=== PATIENT | male | born 1985 | race Caucasian/White ===

== ENCOUNTER 2019-04-22 03:55 | Emergency (ER) | payer OTHER, SELFPAY ==
[2019-04-22 04:01] VITALS: BP 148/104; PULSE 122; PULSE 124; RESP 20; TEMP 37.4; O2SAT 97
--- NOTE | 2019-04-22 04:12 | ECG_ITS ---
Measurements Intervals [place] Rate: 120 P: 68 SC: 150 QRS: 116 QRSD: 101 T: 63 QT: 434 QTc: 613 Interpretive Statements SINUS TACHYCARDIA RIGHT AXIS DEVIATION VOLTAGE CRITERIA FOR LVH CANNOT RULE OUT SEPTAL INFARCT, AGE INDETERMINATE MINIMAL ST ELEVATION IN ANTERIOR LEADS- PROBABLY DUE TO PRIOR CO OR LVH HIGH LATERAL INFARCT, AGE INDETERMINATE BASELINE ARTIFACT- I ABNORMAL ECG Electronically Signed On 04-22-2019 7:34:58 CDT by Adair Stewart D.O.
--- NOTE | 2019-04-22 05:37 | ED.URI ---
HPI - URI/Sore Throat General Chief Complaint: Chest Pain Stated Complaint: dizzy, palpitations Time Seen by Provider: 04/22/19 04:07 Source: patient Mode of arrival: ambulatory Limitations: no limitations History of Present Illness HPI Narrative: Patient is a 33-year-old male presents to the emergency department with complaint of congestion, sore throat, earache, chills/sweats, ringing in his ears, and cough. Patient reports onset of symptoms a few days ago. Patient also reports worsening pain in his left ear after blowing his nose really hard. Complains of a dizzy sensation and does note an occasional palpitation or thumping sensation in his chest. He specifically denies any chest pain, contrary to nursing notes, and denies any shortness of breath. Patient does have prior history of coronary artery disease and acute VT. Patient denies any symptoms consistent with what he has had previously with his VT. MD elicited complaint: cough, sore throat, rhinorrhea and nasal congestion Onset (ago): day(s) Consistency: constant Associated symptoms: chills, diaphoresis, headache, rhinorrhea, nasal congestion, sore throat, cough and ear pain Treatments prior to arrival: other (Excedrin) Related Data Allergies Allergy/AdvReac Type Severity Reaction Status Date / Time No Known Allergies Allergy Unverified 06/24/18 13:23 Review of Systems Review of Systems: All systems reviewed & are unremarkable except as noted in HPI and below Constitutional: Constitutional: Reports chills, Reports excessive sweating, Denies fever(s) and Reports headache(s) ENT: Reports dizziness, Reports otalgia, Reports headache(s), Reports nasal congestion, Reports nasal discharge, Reports tinnitus and Reports sore throat Cardiovascular: Cardiovascular: Denies chest pain Respiratory: Respiratory: Reports cough and Denies dyspnea PMFSH Past Medical History Medical History Anxiety Asthma CHF (congestive heart failure) Coronary artery disease Depression Diabetes mellitus GERD (gastroesophageal reflux disease) Hyperlipidemia Hypertension Ischemic cardiomyopathy Sleep apnea Surgical History Surgical History History of cardiac catheterization History of coronary artery stent placement History of esophagogastroduodenoscopy (EGD) History of orthopedic surgery Social History Social History Smoking status: Light tobacco smoker Alcohol intake: never Gender identity (if verbalized by the patient): Male Exam Const: General: cooperative, no acute distress and alert Nutritional Appearance: obese Orientation/consciousness: patient oriented x3 Limitations: no limitations HENMT: Ears: external ears normal, EAC's normal and TM abnormal erythematous on the left (mild); not bulging, with no fluid behind the TM and with no loss of landmarks Mouth: Yes lip normal and Yes moist mucous membranes Throat: uvula midline and posterior oropharynx abnormal cobblestoning, edema and erythema Resp: Effort & Inspection: normal respiratory effort Auscultation: clear to auscultation bilaterally Cardio: Rate: regular rate Rhythm: regular rhythm GI: GI Palp: Yes Soft to palpation and No Tenderness to palpation present (GI) Auscultation: normal bowel sounds Skin: General skin exam: normal color Neuro: General: patient oriented x3 Cognition (Neuro): normal cognition Speech: normal speech Extrem: General: normal to inspection, full ROM and no clubbing, cyanosis or edema Psych: Mental Status: mental status grossly normal Affect: normal affect Attitude: cooperative Course Course Emergency Course: On reevaluation, patient complaining of ongoing nasal congestion. Patient has low-grade temperature elevation. Strep and flu testing negative. Patient denying any chest pain, shortness of breath, or any o
[2019-04-22 05:46] VITALS: BP 160/102; PULSE 106; RESP 20; O2SAT 96
[2019-04-22 06:14] VITALS: BP 132/88; PULSE 108; RESP 18; O2SAT 98
== END 2019-04-22 06:16 | disposition home or self-care (01) ==
PROVIDERS: Emergency Provider Emergency Medicine; PCP Emergency Medicine
DX: J06.9 Acute upper respiratory infection, unspecified (principal); I25.10 Atherosclerotic heart disease of native coronary artery without angina pectoris; I25.2 Old myocardial infarction; J45.909 Unspecified asthma, uncomplicated; I50.9 Heart failure, unspecified; E11.9 Type 2 diabetes mellitus without complications; K21.9 Gastro-esophageal reflux disease without esophagitis; E78.5 Hyperlipidemia, unspecified; I11.0 Hypertensive heart disease with heart failure; G47.30 Sleep apnea, unspecified; Z95.5 Presence of coronary angioplasty implant and graft; R00.0 Tachycardia, unspecified; R94.31 Abnormal electrocardiogram [ECG] [EKG]
CPT/HCPCS: 87081; 87804; 87880; 93005; 99283

== ENCOUNTER 2021-09-28 05:05 | Emergency (ER) | payer OTHER, SELFPAY ==
[2021-09-28] VITALS (8 sets, daily range): BP systolic 112–141; BP diastolic 66–94; PULSE 88–106; RESP 14–23; TEMP 36.9–37.4; O2SAT 94–99
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
--- NOTE | ~2021-09-28 | XR_ITS ---
EXAMINATION: XR chest 1V portable DATE: 09/28/2021 05:59 INDICATION: Syncope. TECHNIQUE: A single frontal view of the chest was obtained. COMPARISON: Chest single view 10/07/2018, chest CT 09/11/2017 FINDINGS: The chest demonstrates clear lungs without pneumonia, pleural effusion, or pneumothorax. Th e heart size is normal. There is an old healed fracture of right clavicle. IMPRESSION: 1. No acute cardiopulmonary disease. Reviewed, dictated and finalized at location A.
--- NOTE | ~2021-09-28 | CT_ITS ---
EXAMINATION: CT cervical spine wo con DATE: 09/28/2021 05:42 INDICATION: Head injury. TECHNIQUE: Computed tomography (CT) of the cervical spine was performed without intravenous contrast. Automated exposure control and iterative reconstruction technique were employed. The dose-length pro duct was 471.17 mGy-cm. COMPARISON: CT cervical spine 11/23/2015 FINDINGS: There is 7 degrees dextrocurvature of cervicothoracic spine. There is mild chronic anterior wedging of T1 vertebral body. There is mildly decreased disc height at C6-C7. The following disc lev els are specifically discussed: C2-C3: There is mild left uncovertebral joint osteoarthritis. There is mild bilateral facet joint ost eoarthritis. There is no neural foraminal stenosis. There is no central canal stenosis. C3-C4: There is mild left uncovertebral joint osteoarthritis. There is mild left facet joint osteoart hritis. There is no neural foraminal stenosis. There is no central canal stenosis. C4-C5: There is mild right uncovertebral joint osteoarthritis. There is no facet joint osteoarthritis . There is no neural foraminal stenosis. There is no central canal stenosis. C5-C6: There is mild right uncovertebral joint osteoarthritis. There is mild bilateral facet joint os teoarthritis. There is no neural foraminal stenosis. There is no central canal stenosis. C6-C7: There is no uncovertebral joint osteoarthritis. There is no facet joint osteoarthritis. There is no neural foraminal stenosis. There is mild central canal stenosis. C7-T1: There is no uncovertebral joint osteoarthritis. There is mild right and moderate left facet candy int osteoarthritis. There is no neural foraminal stenosis. There is no central canal stenosis. IMPRESSION: 1. No fracture. 2. Mild cervical spondylosis. Reviewed, dictated and finalized at location A.
--- NOTE | 2021-09-28 05:09 | ECG_ITS ---
Measurements Intervals [place] Rate: 109 P: 64 MD: 181 QRS: -65 QRSD: 115 T: 83 QT: 335 QTc: 452 Interpretive Statements SINUS TACHYCARDIA POSSIBLE LEFT ATRIAL ENLARGEMENT [-0.1mV P-WAVE IN V1/V2] LEFT AXIS DEVIATION [QRS AXIS < -30] ANTEROSEPTAL MYOCARDIAL INFARCTION , POSSIBLY ACUTE [40+ ms Q WAVE IN V1-V4] ACUTE [place] ABNORMAL ECG Electronically Signed On 10-02-2021 9:54:01 CDT by Sudeep Murray M.D.
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
[2021-09-28] MEDS: SODIUM CHLORIDE 0.9% IV 1,000 ML 999 ML IV CONT (05:49)
[2021-09-28 05:52] LABS: Basophils Absolute Auto 0.1 K/mm3 (0.0-0.1); Basophils Percent Auto 0.4 % (0.2-1.2); Eosinophils Percent Auto 0.2 % (0-4.4); Hematocrit 43.9 % (42.0-52.0); Hemoglobin 15.2 g/dL (14.0-18.0); Immature Granulocyte Absolute 0.04 K/mm3 (0.00-0.031); Immature Granulocyte Percent A 0.3 % (0-0.5); Lymphocytes Absolute Auto 2.59 K/mm3 (0.9-3.2); Lymphocytes Percent Auto 18.3 % (18.3-44.2); Mean Corpuscular HGB Conc 34.6 g/dl (32-36); Mean Corpuscular Hemoglobin 30.9 pg (26-34); Mean Corpuscular Volume 89.2 fl (80-100); Mean Platelet Volume 9.9 fl (7.4-10.4); Monocytes Absolute Auto 0.8 K/mm3 (0.1-0.6); Monocytes Percent Auto 5.3 % (2.6-8.5); Neutrophils Absolute Auto 10.7 K/mm3 (1.3-6.7); Neutrophils Percent Auto 75.5 % (45.5-73.1); Platelet Count Result 309 k/mm3 (150-375); Red Blood Count 4.92 M/mm3 (4.6-6.20); Red Cell Distribution Width 13.6 % (11.5-14.5); White Blood Count 14.1 K/mm3 (4.5-10.0)
[2021-09-28 06:03] LABS: Anion Gap 11 mmol/L (8-16); Blood Urea Nitrogen 16 mg/dL (9-20); Calcium 8.7 mg/dL (8.4-10.2); Carbon Dioxide 24 mmol/L (22-30); Chloride 105 mmol/L (98-107); Estimated CRCL calculation 109 ml/min; Estimated Glomerular Filt Rate > 60; Glucose 111 mg/dL (65-110); INR 1.1; Potassium 3.6 mmol/L (3.4-5.0); Prothrombin Time 13.4 Seconds (11.1-14.7); Sodium 140 mmol/L (137-145)
[2021-09-28 06:04] LABS: Partial Thromboplastin Time 26.7 SECONDS (22.3-36.8)
[2021-09-28 06:14] LABS: Troponin I 0.012 ng/mL (0.000-0.034)
[2021-09-28 06:18] LABS: NT Pro B Type Natriuretic Pept 381 pg/mL (5-100)
[2021-09-28 06:35] LABS: Ethanol 45 mg/dL (<10)
--- NOTE | 2021-09-28 07:16 | PC.NURSE ---
Patient refusing Motrin and Tylenol, states only Aspirin helps his headaches. EDP Meri notified, per EDP via verbal order read-back order 81mg Aspirin.
[2021-09-28] MEDS: ASPIRIN 81 MG CHEWABLE TABLET PO (07:21)
--- NOTE | 2021-09-28 08:13 | PC.NURSE ---
Patient given ice pack for headache
[2021-09-28 09:33] LABS: Troponin I 0.017 ng/mL (0.000-0.034)
--- NOTE | 2021-09-28 10:02 | PC.NURSE ---
Patient calling for ride home
== END 2021-09-28 10:13 | disposition home or self-care (01) ==
PROVIDERS: Emergency Provider Emergency Medicine; PCP Emergency Medicine
DX: R55 Syncope and collapse (principal); R78.0 Finding of alcohol in blood; I50.9 Heart failure, unspecified; I25.10 Atherosclerotic heart disease of native coronary artery without angina pectoris; I11.0 Hypertensive heart disease with heart failure; I25.5 Ischemic cardiomyopathy; E78.5 Hyperlipidemia, unspecified; J45.909 Unspecified asthma, uncomplicated; K21.9 Gastro-esophageal reflux disease without esophagitis; G47.30 Sleep apnea, unspecified; Z95.5 Presence of coronary angioplasty implant and graft; F17.200 Nicotine dependence, unspecified, uncomplicated; R00.0 Tachycardia, unspecified; R94.31 Abnormal electrocardiogram [ECG] [EKG]; M47.812 Spondylosis without myelopathy or radiculopathy, cervical region; W18.39XA Other fall on same level, initial encounter
CPT/HCPCS: 36415; 70450; 71045; 72125; 80048; 80307; 83880; 84484; 85025; 85610; 85730; 93005; 96360; 99284; A9270; J7030

== ENCOUNTER 2021-09-28 23:03 | Emergency (ER) | payer OTHER, SELFPAY ==
--- NOTE | ~2021-09-28 | US_ITS ---
EXAMINATION: US scrotum doppler DATE: 09/29/2021 04:18 INDICATION: Right testicular pain. TECHNIQUE: Grayscale and Doppler ultrasound images of the testes were obtained. COMPARISON: None. FINDINGS: The right testis measures 5.7 x 3.2 x 2.6 cm. The left testis measures 5.6 x 3.3 x 2.8 cm. There is normal vascular flow to both testes. The right epididymis is normal. The left epididymis is normal. There is no varicocele or hydrocele. IMPRESSION: 1. Normal testes. Reviewed, dictated and finalized at location A. IMPRESSION: 1. Normal testes.
--- NOTE | ~2021-09-28 | CT_ITS ---
EXAMINATION: CT abdomen pelvis w con DATE: 09/29/2021 04:32 INDICATION: Right flank pain. TECHNIQUE: Computed tomography (CT) of the abdomen and pelvis was performed with 100 mL Omnipaque 350 intravenous contrast. Automated exposure control and iterative reconstruction technique were employe d. The dose-length product was 818.05 mGy-cm. COMPARISON: None. FINDINGS: The visualized portions of the lung bases are clear without pneumonia or pleural effusion. There is left atrial and left ventricular enlargement of the heart. No pericardial effusion. There ar e cysts in the liver measuring up to 8 mm. There are gallstones in the gallbladder, which is normal i n size. The spleen, pancreas, and adrenal glands are normal. There is mild right hydroureter. There i s a 2 mm stone at right ureterovesicular junction. There is a 2.0 cm cyst in left kidney. There are n o dilated loops of bowel. The appendix is normal. There are no pathologically enlarged lymph nodes. T here is no free intraperitoneal fluid. There is moderate lower lumbar spondylosis. IMPRESSION: 1. 2 mm stone at right ureterovesicular junction with mild right hydroureter. 2. Left atrial and left ventricular enlargement of the heart. Reviewed, dictated and finalized at location A.
[2021-09-28 23:08] VITALS: BP 125/77; PULSE 86; RESP 18; TEMP 36.4; O2SAT 97
--- NOTE | 2021-09-28 23:43 | PC.NURSE ---
patient is yelling at this RN and states I 'need to be taken back to a room immediately this is ridiculous. i am about to call an ambulance to come get me and take me somewhere else
--- NOTE | 2021-09-29 02:47 | ED.ABDPAIN ---
HPI - Abdominal Pain General Chief Complaint: Abdominal Pain <Valerie Cuevas MD - Last Filed: 09/29/21 06:19> Stated Complaint: chest pain and flank pain <Valerie Cuevas MD - Last Filed: 09/29/21 06:19> Time Seen by Provider: 09/29/21 02:47 <Valerie Cuevas MD - Last Filed: 09/29/21 06:19> Source: patient <Valerie Cuevas MD - Last Filed: 09/29/21 06:19> Mode of arrival: ambulatory <Valerie Cuevas MD - Last Filed: 09/29/21 06:19> Limitations: no limitations <Valerie Cuevas MD - Last Filed: 09/29/21 06:19> History of Present Illness HPI narrative: Patient is a 36-year-old male with a history of diabetes, hypertension, hyperlipidemia, cardiomyopathy, congestive heart failure, recently evaluated at this facility this morning, presenting to the emergency department for evaluation of right flank pain and right testicle pain. Patient states he has felt unwell throughout the course of the day with intermittent dizziness, now with right flank pain and right testicle pain. Pain is aching in nature in the right testicle. Patient denies swelling redness. He reports dysuria without hematuria. He reports aching, sharp pain in the right flank. Patient denies fever, chills, he reports nausea without vomiting. He denies vision changes. He denies recurrent fall or injury. He denies alcohol use today. Patient denies penile pain or discharge. He denies vesicular lesions or bruising. Patient denies history of kidney stones. <Valerie Cuevas MD - Last Filed: 09/29/21 06:19> Related Data Allergies/Adverse Reactions: Allergies Allergy/AdvReac Type Severity Reaction Status Date / Time No Known Allergies Allergy Verified 09/28/21 05:15 <Valerie Cuevas MD - Last Filed: 09/29/21 06:19> Review of Systems Review of Systems: CONSTITUTIONAL: Denies fever, chills, or sweats. EYES: Denies visual changes, redness, or discharge. ENT: Denies rhinorrhea, congestion, sore throat, or otalgia. CARDIOVASCULAR: Denies chest pain, palpitations, or edema. RESPIRATORY: Denies cough or dyspnea. GASTROINTESTINAL: Patient reports right lower quadrant abdominal pain, right flank pain, he denies nausea or vomiting GENITOURINARY: Patient reports dysuria, he denies hematuria. He reports right testicular pain. SKIN: Denies rash or itching. MUSCULOSKELETAL: Denies back pain, joint pain, or myalgia. NEUROLOGIC: Patient reports headache, dizziness that worsens with movement, denies focal weakness or numbness <Valerie Cuevas MD - Last Filed: 09/29/21 06:19> [facility] Past Medical History Medical History: Medical History (Updated 09/29/21 @ 14:42 by Mani Ferrell MD) Anxiety Asthma CHF (congestive heart failure) Coronary artery disease Depression Diabetes mellitus GERD (gastroesophageal reflux disease) Hyperlipidemia Hypertension Ischemic cardiomyopathy Sleep apnea <Valerie Cuevas MD - Last Filed: 09/29/21 06:19> Surgical History Surgical History: Surgical History History of cardiac catheterization History of coronary artery stent placement History of esophagogastroduodenoscopy (EGD) History of orthopedic surgery <Valerie Cuevas MD - Last Filed: 09/29/21 06:19> Social History Social History: Social History Smoking status: Light tobacco smoker Alcohol intake: never Gender identity (if verbalized by the patient): Male <Valerie Cuevas MD - Last Filed: 09/29/21 06:19> Exam Narrative: GENERAL: Awake, alert, conversant HEAD: Normocephalic, atraumatic. EYES: PERRLA and EOMI. ENT: Nares clear, no rhinorrhea or epistaxis. Mucous membranes moist. NECK: Supple. CHEST: No respiratory distress, breathing even and non labored HEART: Regular rate, sinus rhythm ABDOMEN:Non distended, tender in the right lower quadrant, right flank tenderness. : Penis is
[2021-09-29 03:35] LABS: Basophils Percent Auto 0.3 % (0.2-1.2); Eosinophils Absolute Auto 0.1 K/mm3 (0-0.3); Eosinophils Percent Auto 0.7 % (0-4.4); Hematocrit 45.6 % (42.0-52.0); Hemoglobin 15.6 g/dL (14.0-18.0); Immature Granulocyte Absolute 0.03 K/mm3 (0.00-0.031); Immature Granulocyte Percent A 0.3 % (0-0.5); Lymphocytes Absolute Auto 2.84 K/mm3 (0.9-3.2); Lymphocytes Percent Auto 28.1 % (18.3-44.2); Mean Corpuscular HGB Conc 34.2 g/dl (32-36); Mean Corpuscular Hemoglobin 30.4 pg (26-34); Mean Corpuscular Volume 88.9 fl (80-100); Mean Platelet Volume 9.2 fl (7.4-10.4); Monocytes Absolute Auto 0.7 K/mm3 (0.1-0.6); Monocytes Percent Auto 6.7 % (2.6-8.5); Neutrophils Absolute Auto 6.5 K/mm3 (1.3-6.7); Neutrophils Percent Auto 63.9 % (45.5-73.1); Platelet Count Result 293 k/mm3 (150-375); Red Blood Count 5.13 M/mm3 (4.6-6.20); Red Cell Distribution Width 14.1 % (11.5-14.5); White Blood Count 10.1 K/mm3 (4.5-10.0)
[2021-09-29 03:45] LABS: Ethanol < 10 mg/dL (<10)
[2021-09-29 03:51] LABS: Alanine Aminotransferase 24 U/L (6-50); Albumin Level 4.1 g/dL (3.5-5.1); Alkaline Phosphatase 59 U/L (38-126); Anion Gap 6 mmol/L (8-16); Aspartate Amino Transferase 27 U/L (17-59); Bilirubin,Total 0.8 mg/dL (0.2-1.3); Blood Urea Nitrogen 16 mg/dL (9-20); Carbon Dioxide 27 mmol/L (22-30); Chloride 104 mmol/L (98-107); Estimated CRCL calculation 109 ml/min; Estimated Glomerular Filt Rate > 60; Glucose 135 mg/dL (65-110); Lipase 45 U/L (23-300); Potassium 3.8 mmol/L (3.4-5.0); Sodium 137 mmol/L (137-145)
--- NOTE | 2021-09-29 04:10 | PC.NURSE ---
Pt in ultrasound at this time
[2021-09-29] MEDS: SODIUM CHLORIDE 0.9% IV 1,000 ML 999 ML IV CONT (04:33)
[2021-09-29] MEDS: MORPHINE SULFATE (*CRX) 4 MG/ML INJ IV PUSH (04:34)
[2021-09-29] MEDS: ONDANSETRON INJ 4 MG/2 ML VIAL IV PUSH (04:36)
[2021-09-29 04:41] VITALS: BP 156/109; PULSE 72; RESP 16; O2SAT 97
[2021-09-29 06:00] VITALS: BP 140/96; PULSE 67; RESP 18; O2SAT 97
--- NOTE | 2021-09-29 06:02 | PC.NURSE ---
Pt asked for urine sample. Pt states ill know when i have to go Pt asked to please attempt. Pt states i don't have to go
[2021-09-29] MEDS: KETOROLAC 30 MG/ML VIAL (*BKC) IM (06:33)
[2021-09-29 06:45] LABS: Appearance Urine Clear (Clear); Bilirubin Urine Negative (Negative); Color Urine Yellow (Yellow); Glucose Urine UA Negative (Negative); Ketones Urine Negative (Negative); Leukocyte Esterase Ur Negative LEU/UL (Negative); Nitrate Urine Negative (Negative); Protein Urine Negative (Negative); Urobilinogen Urine 0.2 mg/dL (<2.0)
[2021-09-29 06:49] LABS: Mucus Urine Rare /lpf; Squamous Epithelial Cell Urine Rare /hpf (Few); WBC Urine 21-30 /hpf
[2021-09-29 06:51] LABS: Add Urine Microscopic? YES; Blood Urine Trace-Intact (Negative)
[2021-09-29 08:11] VITALS: BP 125/82; PULSE 72; RESP 18; O2SAT 97
== END 2021-09-29 08:15 | disposition home or self-care (01) ==
PROVIDERS: Emergency Provider Emergency Medicine; PCP Emergency Medicine
DX: N13.2 Hydronephrosis with renal and ureteral calculous obstruction (principal); N50.811 Right testicular pain; E11.9 Type 2 diabetes mellitus without complications; E78.5 Hyperlipidemia, unspecified; I50.9 Heart failure, unspecified; I11.0 Hypertensive heart disease with heart failure; I25.10 Atherosclerotic heart disease of native coronary artery without angina pectoris; I25.5 Ischemic cardiomyopathy; J45.909 Unspecified asthma, uncomplicated; K21.9 Gastro-esophageal reflux disease without esophagitis; G47.30 Sleep apnea, unspecified; F17.200 Nicotine dependence, unspecified, uncomplicated; I51.7 Cardiomegaly
CPT/HCPCS: 36415; 70450; 71045; 72125; 74177; 76870; 80048; 80053; 80307; 81001; 83690; 83880; 84484; 85025; 85610; 85730; 87086; 93005; 93976; 96360; 96361; 96372; 96374; 96375; 99284; A9270; J1885; J2270; J2405; J7030; Q9967

== ENCOUNTER 2022-03-18 15:38 | Emergency (ER) | payer OTHER, SELFPAY ==
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
--- NOTE | ~2022-03-18 | XR_ITS ---
EXAMINATION: XR chest 2V DATE: 03/18/2022 16:13 INDICATION: Chest pain and cough TECHNIQUE: PA and lateral views of the chest were obtained. COMPARISON: Chest radiograph dated 09/28/2021 FINDINGS: The lungs remain clear with no focal airspace opacities, pulmonary edema, pleural effusion or pneumot horax. The cardiomediastinal silhouette is normal. Coronary artery stenting. Old healed right clavicl e fracture deformity. IMPRESSION: 1. No acute cardiopulmonary disease. Reviewed, dictated and finalized at location A. AL IMPLEMENTATION MANAGER
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
--- NOTE | 2022-03-18 15:45 | ECG_ITS ---
Measurements Intervals [place] Rate: 96 P: 55 MO: 159 QRS: -83 QRSD: 110 T: 80 QT: 342 QTc: 433 Interpretive Statements SINUS RHYTHM POSSIBLE LEFT ATRIAL ENLARGEMENT [-0.1mV P WAVE IN V1/V2] LEFT ANTERIOR FASCICULAR BLOCK [QRS AXIS <= -45, QR IN I, RS IN II] OLD ANTEROLATERAL MYOCARDIAL INFARCTION , OF INDETERMINATE AGE [40+ ms Q WAVE IN I/aVL/V3-V6] COMPARED TO ECG 09/28/2021 05:09:40 THE RATE IS SLOWER THE ST ELEVATION ANTERIORLY HAS IMPROVED Electronically Signed On 03-19-2022 8:35:04 BUSINESS SUPPORT SPECIALIST by Dayami Jay M.D.
[2022-03-18 15:53] VITALS: BP 125/79; PULSE 69; RESP 14; TEMP 36.3; O2SAT 98
[2022-03-18 16:29] LABS: Basophils Absolute Auto 0.1 K/mm3 (0.0-0.1); Basophils Percent Auto 0.7 % (0.2-1.2); Eosinophils Absolute Auto 0.3 K/mm3 (0-0.3); Eosinophils Percent Auto 3.2 % (0-4.4); Hematocrit 45.6 % (42.0-52.0); Hemoglobin 15.9 g/dL (14.0-18.0); Immature Granulocyte Absolute 0.02 K/mm3 (0.00-0.031); Immature Granulocyte Percent A 0.2 % (0-0.5); Lymphocytes Percent Auto 41.7 % (18.3-44.2); Mean Corpuscular HGB Conc 34.9 g/dl (32-36); Mean Corpuscular Hemoglobin 31.3 pg (26-34); Mean Corpuscular Volume 89.8 fl (80-100); Mean Platelet Volume 8.7 fl (7.4-10.4); Monocytes Absolute Auto 0.6 K/mm3 (0.1-0.6); Monocytes Percent Auto 7.6 % (2.6-8.5); Neutrophils Absolute Auto 3.8 K/mm3 (1.3-6.7); Neutrophils Percent Auto 46.6 % (45.5-73.1); Platelet Count Result 305 k/mm3 (150-375); Red Blood Count 5.08 M/mm3 (4.6-6.20); Red Cell Distribution Width 12.8 % (11.5-14.5); White Blood Count 8.2 K/mm3 (4.5-10.0)
[2022-03-18 16:40] VITALS: BP 108/58; PULSE 89; RESP 18; O2SAT 100
[2022-03-18 16:41] LABS: INR 1.1; Prothrombin Time 13.5 Seconds (11.1-14.7)
[2022-03-18 16:45] LABS: Alanine Aminotransferase 29 U/L (6-50); Albumin Level 4.5 g/dL (3.5-5.1); Alkaline Phosphatase 59 U/L (38-126); Anion Gap 6 mmol/L (8-16); Aspartate Amino Transferase 32 U/L (17-59); Bilirubin,Total 0.7 mg/dL (0.2-1.3); Blood Urea Nitrogen 13 mg/dL (9-20); Calcium 9.2 mg/dL (8.4-10.2); Carbon Dioxide 29 mmol/L (22-30); Chloride 105 mmol/L (98-107); Estimated CRCL calculation 121 ml/min; Estimated Glomerular Filt Rate > 60; Glucose 110 mg/dL (65-110); Lipase 119 U/L (23-300); Potassium 4.2 mmol/L (3.4-5.0); Sodium 140 mmol/L (137-145)
[2022-03-18 16:57] LABS: Troponin I < 0.012 ng/mL (0.000-0.034)
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
[2022-03-18] MEDS: MECLIZINE HCL 25 MG TABLET PO (17:42)
[2022-03-18] MEDS: SODIUM CHLORIDE 0.9% IV 1,000 ML 999 ML IV CONT (17:42)
[2022-03-18] MEDS: ONDANSETRON INJ 4 MG/2 ML VIAL IV PUSH (17:42)
[2022-03-18] MEDS: ASPIRIN 81 MG CHEWABLE TABLET 324 MG PO (17:49)
[2022-03-18 18:13] VITALS: BP 115/76; PULSE 76; RESP 14; O2SAT 100
== END 2022-03-18 18:14 | disposition home or self-care (01) ==
PROVIDERS: Emergency Medicine; Emergency Provider Physician Assistant; PCP Emergency Medicine
DX: S09.90XA Unspecified injury of head, initial encounter (principal); R07.89 Other chest pain; J45.909 Unspecified asthma, uncomplicated; I50.9 Heart failure, unspecified; I25.10 Atherosclerotic heart disease of native coronary artery without angina pectoris; I11.0 Hypertensive heart disease with heart failure; I25.5 Ischemic cardiomyopathy; E11.9 Type 2 diabetes mellitus without complications; E78.5 Hyperlipidemia, unspecified; K21.9 Gastro-esophageal reflux disease without esophagitis; G47.30 Sleep apnea, unspecified; Z95.5 Presence of coronary angioplasty implant and graft; F17.200 Nicotine dependence, unspecified, uncomplicated; J32.0 Chronic maxillary sinusitis; J32.2 Chronic ethmoidal sinusitis; M47.812 Spondylosis without myelopathy or radiculopathy, cervical region; Y04.2XXA Assault by strike against or bumped into by another person, initial encounter; Y00.XXXA Assault by blunt object, initial encounter
CPT/HCPCS: 36415; 70450; 70486; 71046; 72125; 80053; 83690; 84484; 85025; 85610; 85730; 93005; 96361; 96374; 96375; 99284; A9270; J0131; J2405; J7030

== ENCOUNTER 2022-05-26 18:05 | Observation (INO) | payer MEDICAID, SELFPAY ==
[2022-05-26] VITALS (7 sets, daily range): BP systolic 103–120; BP diastolic 74–89; PULSE 80–90; RESP 14–26; TEMP 36.6; O2SAT 95–99; BMI 26.4
--- NOTE | ~2022-05-26 | XR_ITS ---
EXAMINATION: XR chest 2V 05/26/2022 18:33 INDICATION: Chest pain PROCEDURE: 2 view chest COMPARISON: Comparison to multiple prior studies sequentially, with oldest reviewed study dated 07/08. FINDINGS: The lungs are clear. The cardiomediastinal silhouette is within normal limits. There are no pleural effusions. There is no pneumothorax suspected. IMPRESSION: 1: NO ACUTE CARDIOPULMONARY DISEASE. Reviewed, dictated and finalized at location A.
--- NOTE | 2022-05-26 18:10 | ECG_ITS ---
Measurements Intervals [place] Rate: 89 P: 52 UT: 165 QRS: -67 QRSD: 111 T: 115 QT: 365 QTc: 446 Interpretive Statements SINUS RHYTHM POSSIBLE LEFT ATRIAL ENLARGEMENT [-0.1mV P WAVE IN V1/V2] INDETERMINATE AXIS LEFT ANTERIOR FASCICULAR BLOCK [QRS AXIS <= -45, QR IN I, RS IN II] ANTEROLATERAL MYOCARDIAL INFARCTION , OF INDETERMINATE AGE [40+ ms Q WAVE IN I/aVL/V3- V6] COMPARED TO ECG 03/18/2022 15:49:07 NO SIGNIFICANT CHANGES Electronically Signed On 05-26-2022 18:41:16 CDT by Janet Hebert M.D.
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
[2022-05-26 18:27] LABS: Basophils Absolute Auto 0.1 K/mm3 (0.0-0.1); Basophils Percent Auto 0.5 % (0.2-1.2); Eosinophils Absolute Auto 0.1 K/mm3 (0-0.3); Eosinophils Percent Auto 0.7 % (0-4.4); Hematocrit 44.7 % (42.0-52.0); Hemoglobin 15.6 g/dL (14.0-18.0); Immature Granulocyte Absolute 0.06 K/mm3 (0.00-0.031); Immature Granulocyte Percent A 0.5 % (0-0.5); Lymphocytes Absolute Auto 2.37 K/mm3 (0.9-3.2); Lymphocytes Percent Auto 18.7 % (18.3-44.2); Mean Corpuscular HGB Conc 34.9 g/dl (32-36); Mean Corpuscular Hemoglobin 31.1 pg (26-34); Monocytes Absolute Auto 0.7 K/mm3 (0.1-0.6); Monocytes Percent Auto 5.2 % (2.6-8.5); Neutrophils Absolute Auto 9.4 K/mm3 (1.3-6.7); Neutrophils Percent Auto 74.4 % (45.5-73.1); Platelet Count Result 311 k/mm3 (150-375); Red Blood Count 5.02 M/mm3 (4.6-6.20); White Blood Count 12.7 K/mm3 (4.5-10.0)
[2022-05-26 18:41] LABS: INR 1.1; Partial Thromboplastin Time 24.9 SECONDS (22.3-36.8); Prothrombin Time 13.7 Seconds (11.1-14.7)
[2022-05-26 18:52] LABS: Alanine Aminotransferase 34 U/L (6-50); Albumin Level 4.3 g/dL (3.5-5.1); Alkaline Phosphatase 59 U/L (38-126); Anion Gap 5 mmol/L (8-16); Aspartate Amino Transferase 27 U/L (17-59); Bilirubin,Total 0.6 mg/dL (0.2-1.3); Blood Urea Nitrogen 20 mg/dL (9-20); Calcium 9.3 mg/dL (8.4-10.2); Carbon Dioxide 24 mmol/L (22-30); Chloride 107 mmol/L (98-107); Estimated CRCL calculation 107 ml/min; Estimated Glomerular Filt Rate > 60; Glucose 113 mg/dL (65-110); Lipase 52 U/L (23-300); Potassium 3.6 mmol/L (3.4-5.0); Sodium 136 mmol/L (137-145)
[2022-05-26 19:11] LABS: Troponin I 0.121 ng/mL (0.000-0.034)
[2022-05-26] MEDS: ENOXAPARIN 100 MG/ML SYRINGE 86 MG SUB-Q (20:04)
--- NOTE | 2022-05-26 20:10 | PC.NURSE ---
Ham sandwich and fruit cup given to pt at this time.
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
[2022-05-26] MEDS: MORPHINE SULFATE (*CRX) 2 MG/ML INJ IV PUSH (20:32)
[2022-05-26 21:03] LABS: Cholesterol 208 mg/dL (0-200); HDL Direct 34 mg/dL; Triglycerides 159 mg/dL (<150)
[2022-05-26 21:12] LABS: NT Pro B Type Natriuretic Pept 317 pg/mL (19.9-100)
[2022-05-26 21:14] LABS: LDL Cholesterol Direct 131 mg/dL
[2022-05-26 21:18] LABS: Amphetamine Screen Urine Negative (Negative); Barbiturate Screen Urine Negative (Negative); Benzodiazepines Screen Urine Negative (Negative); Cannabinoid Screen Urine Positive (Negative); Cocaine Screen Urine Positive (Negative); Methadone Screen Urine Negative (Negative); Opiate Screen Urine Negative (Negative); Phencyclidine Screen Urine Negative (Negative)
--- NOTE | 2022-05-26 22:41 | ADMGEN ---
This patient, Skip Reyna, was admitted to Intensive Care Unit-10 at 2155. Patient/family oriented to hospital policies and general routines including ID bracelet, bed and alarms, visiting hours, pain management, procedures, bathroom and other care routines, personal items, smoking policy, room service/diet, and visiting hours. Information on how to activate the Rapid Response Team has been discussed. Patient/Family are encouraged to report perceived risks to care and to ask questions if they do not understand what they are told or what they should do.
[2022-05-26 22:53] LABS: Troponin I 0.118 ng/mL (0.000-0.034)
[2022-05-26] MEDS: prednisoLONE ACETATE 1% OPHTH 5 ML 1 DROP LEFT EYE (23:56)
[2022-05-27] VITALS (12 sets, daily range): BP systolic 100–146; BP diastolic 67–97; PULSE 64–82; RESP 13–20; TEMP 35.8–36.8; O2SAT 95–99
[2022-05-27] MEDS: BELLADONNA ALK/PHENOB ELIX 10 ML, MAG HYDROX/ALUMINUM HYD/SIMETH 30 ML, LIDOCAINE HCL 2... PO (00:03)
[2022-05-27 00:50] LABS: Glucose Point of Care 161 mg/dl (65-105)
[2022-05-27 02:50] LABS: Troponin I 0.099 ng/mL (0.000-0.034)
[2022-05-27 05:00] LABS: Cholesterol 193 mg/dL (0-200); HDL Direct 26 mg/dL; Triglycerides 369 mg/dL (<150)
[2022-05-27 05:09] LABS: Hemoglobin A1C 6.4 % (<5.7)
[2022-05-27 05:11] LABS: LDL Cholesterol Direct 115 mg/dL
[2022-05-27 06:51] LABS: Glucose Point of Care 134 mg/dl (65-105)
[2022-05-27] MEDS: prednisoLONE ACETATE 1% OPHTH 5 ML 1 DROP LEFT EYE ×4 (08:29→20:14)
[2022-05-27] MEDS: ASPIRIN 81 MG ENTERIC TABLET PO (08:29)
[2022-05-27] MEDS: ATORVASTATIN 40 MG TABLET PO (08:29)
[2022-05-27] MEDS: MORPHINE SULFATE (*CRX) 4 MG/ML INJ IV PUSH ×2 (08:35→20:15)
--- NOTE | 2022-05-27 09:09 | PM.CNCAR ---
Assessment and Plan Assessment and plan (1) Chest pain: Qualifiers: Chest pain type: unspecified Qualified Code(s): R07.9 - Chest pain, unspecified Code(s): R07.9 - Chest pain, unspecified Status: Acute Plan this is a unfortunate 36-year-old man who has significant problems including coronary artery disease ischemic cardiomyopathy related to occlusion of his LAD and to 2 re occlusions of the vessel with abrupt stent thrombosis because of medical noncompliance. All this occurred back in 2017 and 2019 according to the chart. He has an ischemic cardiomyopathy and was on a good guideline directed medical regimen based on his records and from his timekeeper supervisor in [place]. He enters the hospital after having some symptoms during the stress of being arrested and was admitted to our hospital in this setting. There is no clinical evidence of a new acute myocardial infarction in my opinion. His troponin levels are minimally elevated and are likely the result of the stress of being arrested along with his history of ischemic, cardiomyopathy. His myopathy has been untreated for about a year now since he took himself off of his medications. At this point I would recommend the aspirin and atorvastatin that has been started by the hospitalist. I would also resume his Entresto and spironolactone. His blood pressure is in the low-normal range so I would at this time delay instituting a beta-jorge so as to hopefully avoid hypotension. The Entresto and spironolactone I would start 1st to provide optimal suppression of his renal an angiotensin axis. There is no need to consider taking this patient back to the cardiac catheterization lab. In fact there are some contraindications for that given the fact that he has had successful PCI performed in the past and because of his own noncompliance has experienced significant stent thrombosis. This is a relative contraindication to further PCI and stenting. Obviously his illicit drug use is playing a significant role with his challenging health problems as well. I will follow this patient with you while he is in the hospital after discharge I will recommend that he follow with his established timekeeper supervisor in [place] and as an outpatient they can read titrate/resume beta-jorge therapy. Ryan Salomon MD [facility] History of Present Illness History of Present Illness Consult date/time: 05/27/22 09:09 Consult reason: chest pain Reason For Visit: nstemi Narrative: this is a 36-year-old man I am seeing this morning at the request of the hospitalist because of symptoms of chest pain and abnormality of his troponin level that was noted following admission. Patient is unknown to me prior to this encounter. He apparently was brought to the hospital yesterday as he was being brought into police custody and in the process of being arrested started to complain about chest pain. His chest discomfort was a dull central pressure-like discomfort in the substernal region that waxed and waned in intensity it was not particularly severe he states that it was not associated with diaphoresis or shortness of breath there was no radiation of this pain to any other location. In the emergency department he was evaluated his electrocardiogram shows sinus rhythm with previous anterior wall NH. The ECG is unchanged in comparison to prior tracings. His troponin levels have been found to be slightly out of normal range at 0.09 and 0.1. Because of this situation I have been consulted to see him. He is comfortable in the ICU remember 10 this morning and otherwise feels well. According to the records he has a history of coronary artery disease of the at with previous anterior wall myocardial infarction that occurred in 2017. He apparently underwent emergency PCI with stenting of his LAD. According to the records he was noncompliant with medication and follow-up and re-presented with abrupt stent thrombosis twice
[2022-05-27] MEDS: SACUBITRIL/VALSARTAN 24-26 MG TABLET 1 TAB PO ×2 (09:55→20:14)
[2022-05-27] MEDS: SPIRONOLACTONE 25 MG TABLET PO (09:55)
[2022-05-27 12:00] LABS: Glucose Point of Care 145 mg/dl (65-105)
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
--- NOTE | 2022-05-27 15:20 | PC.NURSE ---
This patient, Skip Reyna, was transferred to [facility] on 05/27/22 at 1520. Personal belongings sent with patient. Report given to Mimi. Appropriate documentation sent with patient.
--- NOTE | 2022-05-27 17:28 | ECG_ITS ---
Measurements Intervals [place] Rate: 69 P: 50 [place]: 181 QRS: -33 QRSD: 110 T: 149 QT: 423 QTc: 455 Interpretive Statements SINUS RHYTHM POSSIBLE LEFT ATRIAL ENLARGEMENT [-0.1mV P WAVE IN V1/V2] MARKED LEFT AXIS DEVIATION [QRS AXIS < -30] PREVIOUS ANTERIOR WALL MN ABNORMAL ECG COMPARED TO ECG 05/26/2022 18:13:54 NO DIFFERENCE Electronically Signed On 05-28-2022 7:22:26 CDT by Ryan Salomon M.D.
--- NOTE | 2022-05-27 17:52 | PC.NURSE ---
pt c/o chest pain stating it was a 6 out of 10. We gathered a set of vitals all of which were within normal limits at that moment. Pt began c/o radiating pain including pain in his head a few minutes later. I ordered a stat troponin and 12 lead EKG. The EKG marked the QT/QTc as 423/442 ACUTE FL. I contacted and spoke with the hospitalist Dr. Burkett to make him aware of what had transpired and the readings of the EKG. No new orders received.
[2022-05-27 18:38] LABS: Glucose Point of Care 130 mg/dl (65-105)
[2022-05-27 18:53] LABS: Troponin I 0.064 ng/mL (0.000-0.034)
[2022-05-27 23:44] LABS: Glucose Point of Care 173 mg/dl (65-105)
[2022-05-28 05:27] VITALS: BP 111/61; PULSE 55; RESP 20; TEMP 36.2; O2SAT 100
[2022-05-28 06:16] LABS: Glucose Point of Care 133 mg/dl (65-105)
[2022-05-28] MEDS: SACUBITRIL/VALSARTAN 24-26 MG TABLET 1 TAB PO (07:42)
[2022-05-28] MEDS: SPIRONOLACTONE 25 MG TABLET PO (07:42)
[2022-05-28] MEDS: ATORVASTATIN 40 MG TABLET PO (07:42)
[2022-05-28] MEDS: ASPIRIN 81 MG ENTERIC TABLET PO (07:42)
[2022-05-28] MEDS: prednisoLONE ACETATE 1% OPHTH 5 ML 1 DROP LEFT EYE (07:42)
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
== END 2022-05-28 10:08 | disposition home or self-care (01) ==
LOC: ANHED 19:51 → ANHICU 22:09 → ANH3MEDSUR 05-30 12:23 → ANHICU 05-30 12:23
PROVIDERS: Admitting Provider Internal Medicine; Emergency Provider Emergency Medicine; PCP Emergency Medicine; Visit Provider Chiropractor
DX: R07.89 Other chest pain (principal); R77.8 Other specified abnormalities of plasma proteins; G47.33 Obstructive sleep apnea (adult) (pediatric); E11.42 Type 2 diabetes mellitus with diabetic polyneuropathy; I25.2 Old myocardial infarction; I25.10 Atherosclerotic heart disease of native coronary artery without angina pectoris; Z95.1 Presence of aortocoronary bypass graft; F41.9 Anxiety disorder, unspecified; J45.909 Unspecified asthma, uncomplicated; I11.0 Hypertensive heart disease with heart failure; I50.9 Heart failure, unspecified; F32.A Depression, unspecified; F12.90 Cannabis use, unspecified, uncomplicated; K21.9 Gastro-esophageal reflux disease without esophagitis; E78.5 Hyperlipidemia, unspecified; I25.5 Ischemic cardiomyopathy; I44.4 Left anterior fascicular block; F14.10 Cocaine abuse, uncomplicated; R20.2 Paresthesia of skin; F17.210 Nicotine dependence, cigarettes, uncomplicated; Z91.148 Patient's other noncompliance with medication regimen for other reason; Z86.718 Personal history of other venous thrombosis and embolism; Z79.52 Long term (current) use of systemic steroids; Z79.899 Other long term (current) drug therapy
CPT/HCPCS: 36415; 71046; 80053; 80061; 80307; 82948; 83036; 83690; 83880; 84484; 85025; 85610; 85730; 93005; 96372; 96374; 96376; 99285; A9270; G0378; G0379; J1650; J2270

== ENCOUNTER 2022-05-29 13:54 | Observation (INO) | payer MEDICAID, SELFPAY ==
[2022-05-29] VITALS (30 sets, daily range): BP systolic 95–113; BP diastolic 61–86; PULSE 69–100; RESP 11–26; TEMP 36.1–36.5; O2SAT 93–100; BMI 27.9
--- NOTE | ~2022-05-29 | XR_ITS ---
EXAMINATION: XR chest 1V portable INDICATION: Chest pain TECHNIQUE: Portable AP chest at 1417 hours COMPARISON: 05/26/2022 FINDINGS: The lungs are free of acute opacities. No pleural effusion or pneumothorax. The cardiomedia stinal silhouette is normal. IMPRESSION: 1. No acute cardiopulmonary abnormality. Reviewed, dictated and finalized at location A.
--- NOTE | 2022-05-29 14:01 | PC.NURSE ---
STEMI 1343 Stemi declared 1344 Over head 1344 Stevie sent 1345 Umm-No Answer 1347 Umm-No Answer 1349 Umm-Answered 1350 [facility] ETA 15min [address] Salomon 1357 Stevie sent out to Cancell 1358 [facility] cancelled
--- NOTE | 2022-05-29 14:05 | ED.CHESTPAIN ---
HPI - Chest Pain General Chief Complaint: Chest Pain Stated Complaint: stemi Time Seen by Provider: 05/29/22 13:55 History of Present Illness HPI narrative: 36-year-old male presented the emergency department for evaluation of recurrent chest pain. Patient presents to the ED from [facility] for complaint of chest pain that started about 1 PM. Patient states he does have persistent chest pain with associated nausea and shortness of breath. Patient describes it as a substernal stabbing pain. When patient was picked up by EMS his initial EKG was called out as a STEMI. Patient was treated with nitro in route and states that his pain had improved patient was also treated with 324 aspirin in route. STEMI was called in the field by EMS. Related Data Home Medications Medication Instructions Recorded Confirmed prednisolone acetate 1 % eye 1 drp LEFT EYE QID 05/26/22 05/29/22 drops,suspension Allergies Allergy/AdvReac Type Severity Reaction Status Date / Time No Known Allergies Allergy Verified 05/29/22 14:07 Review of Systems Review of Systems: All systems reviewed & are unremarkable except as noted in HPI and below PMFSH Past Medical History Medical History Anxiety Asthma CHF (congestive heart failure) Coronary artery disease Depression Diabetes mellitus Diabetic peripheral neuropathy GERD (gastroesophageal reflux disease) Hyperlipidemia Hypertension Ischemic cardiomyopathy EF 30% on echocardiogram 2018 Sleep apnea CPAP of pressure 14 STEMI (ST elevation myocardial infarction) Cardiac catheterization with stent 2017 3.5 x 24 mm proximal LAD stent, Tobacco use Surgical History Surgical History History of cardiac catheterization History of coronary artery stent placement History of esophagogastroduodenoscopy (EGD) History of orthopedic surgery Family History Family History (Updated 05/26/22 @ 23:18 by Jessica Linda DO) Father , At age 45 Acute myocardial infarction Hx of CABG Social History Social History (Updated 05/26/22 @ 23:37 by Jessica Linda DO) Social History: The patient lives at home with his 3 children ages 14, 15 and 3 years old. He occasionally uses alcohol on a once to twice month basis. He has smoked since he was a teenager and has smoked up to a pack of cigarettes per day but has cut back down down to 1 pack of cigarettes per week for the last several years. He uses cannabis edibles and recreationally uses cocaine. Code status: Full code Surrogate decision maker: Amanda Mcfarland (mother) Smoking packs per day: 0.1 Smoking cigarettes per day: 2.0 Years smoked: 3 Smoking pack-years: 0.30 Smoking status: Former smoker Tobacco type: cigarettes Alcohol intake: current Substance use: former Substance use type: crack/cocaine Lack of Transportation: No Lack of Food: Sometimes True Current Housing: I Have Housing Concerned About Future Housing: YES Difficulty Paying Gas/Electric Bills: YES Difficulty Paying for Meds: No Currently Unemployed: No Education: Associate Degree Difficulty w/ Childcare or Family Care: No Gender identity (if verbalized by the patient): Male Spiritual care concerns: Yes Exam Narrative: APPEARANCE: Well appearing, no pain, no distress, well-nourished. HEAD: normocephalic, atraumatic. EYES: PERRLA/EOMI, conjunctivae clear. NOSE: Normal no drainage NECK: Supple. No adenopathy, no masses. RESPIRATORY: Airway patent, respirations nonlabored. Clear to auscultation bilaterally, no rales, rhonchi, wheezing. CARDIOVASCULAR: Regular rate and rhythm without murmurs rubs or gallops. ABDOMINAL: Soft, nontender, nondistended, normal bowel sounds MUSCULOSKELETAL: Moves all extremities. Strength/ROM intact, No edema, No calf tenderness. NEURO: Alert. Cranial nerves II through XII intact. Grossly intact SKIN: Warm, dry. Normal Color Course C
--- NOTE | 2022-05-29 14:06 | ECG_ITS ---
Measurements Intervals [place] Rate: 81 P: 13 TN: 146 QRS: 86 QRSD: 110 T: 128 QT: 345 QTc: 402 Interpretive Statements SINUS RHYTHM INDETERMINATE AXIS PREVIOUS ANTERIOR WALL NE ABNORMAL ECG COMPARED TO ECG 05/27/2022 17:45:42 NO DIFFERENCE Electronically Signed On 05-30-2022 6:59:39 CDT by Ryan Salomon M.D.
[2022-05-29] MEDS: MORPHINE SULFATE (*CRX) 4 MG/ML INJ (14:12)
[2022-05-29 14:13] LABS: Basophils Percent Auto 0.4 % (0.2-1.2); Eosinophils Absolute Auto 0.1 K/mm3 (0-0.3); Eosinophils Percent Auto 1.2 % (0-4.4); Hematocrit 48.2 % (42.0-52.0); Hemoglobin 16.9 g/dL (14.0-18.0); Immature Granulocyte Absolute 0.03 K/mm3 (0.00-0.031); Immature Granulocyte Percent A 0.3 % (0-0.5); Lymphocytes Absolute Auto 2.87 K/mm3 (0.9-3.2); Lymphocytes Percent Auto 31.1 % (18.3-44.2); Mean Corpuscular HGB Conc 35.1 g/dl (32-36); Mean Corpuscular Volume 88.3 fl (80-100); Mean Platelet Volume 9.3 fl (7.4-10.4); Monocytes Absolute Auto 0.6 K/mm3 (0.1-0.6); Monocytes Percent Auto 6.6 % (2.6-8.5); Neutrophils Absolute Auto 5.6 K/mm3 (1.3-6.7); Neutrophils Percent Auto 60.4 % (45.5-73.1); Platelet Count Result 333 k/mm3 (150-375); Red Blood Count 5.46 M/mm3 (4.6-6.20); Red Cell Distribution Width 12.9 % (11.5-14.5); White Blood Count 9.2 K/mm3 (4.5-10.0)
--- NOTE | 2022-05-29 14:16 | PC.NURSE ---
gave 4mg of Morphine IV per Dr. Ludwig.
[2022-05-29 14:24] LABS: INR 1.1; Partial Thromboplastin Time 25.7 SECONDS (22.3-36.8); Prothrombin Time 13.7 Seconds (11.1-14.7)
--- NOTE | 2022-05-29 14:25 | ECG_ITS ---
Measurements Intervals [place] Rate: 79 P: 62 CT: 164 QRS: 235 QRSD: 110 T: 124 QT: 375 QTc: 430 Interpretive Statements SINUS RHYTHM WITH OCCASIONAL VENTRICULAR PREMATURE COMPLEXES POSSIBLE LEFT ATRIAL ENLARGEMENT [-0.1mV P WAVE IN V1/V2] PREVIOUS ANTERIOR WALL CO ABNORMAL ECG COMPARED TO ECG 05/29/2022 13:56:22 NO SIGNIFICANT CHANGES Electronically Signed On 05-30-2022 7:00:20 CDT by Ryan Salomon M.D.
[2022-05-29 14:57] LABS: Troponin I 0.028 ng/mL (0.000-0.034)
[2022-05-29 15:00] LABS: Alanine Aminotransferase 47 U/L (6-50); Albumin Level 4.4 g/dL (3.5-5.1); Alkaline Phosphatase 60 U/L (38-126); Anion Gap 11 mmol/L (8-16); Aspartate Amino Transferase 37 U/L (17-59); Bilirubin,Total 0.7 mg/dL (0.2-1.3); Blood Urea Nitrogen 16 mg/dL (9-20); Calcium 9.6 mg/dL (8.4-10.2); Carbon Dioxide 20 mmol/L (22-30); Chloride 107 mmol/L (98-107); Estimated CRCL calculation 107 ml/min; Estimated Glomerular Filt Rate > 60; Glucose 157 mg/dL (65-110); Lipase 59 U/L (23-300); Potassium 4.3 mmol/L (3.4-5.0); Sodium 138 mmol/L (137-145)
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
[2022-05-29] MEDS: MORPHINE SULFATE (*CRX) 2 MG/ML INJ IV PUSH (17:34)
--- NOTE | 2022-05-29 18:43 | ADMGEN ---
This patient, Skip Reyna, was admitted to IMU Room 209-01 at 1843. Patient/family oriented to hospital policies and general routines including ID bracelet, bed and alarms, visiting hours, pain management, procedures, bathroom and other care routines, personal items, smoking policy, room service/diet, and visiting hours. Information on how to activate the Rapid Response Team has been discussed. Patient/Family are encouraged to report perceived risks to care and to ask questions if they do not understand what they are told or what they should do.
[2022-05-29 19:13] LABS: Troponin I 0.026 ng/mL (0.000-0.034)
[2022-05-29 20:17] LABS: Troponin I 0.031 ng/mL (0.000-0.034)
[2022-05-29] MEDS: HYDROcodone/acetaminophen (*CRX) 5-325 MG TABLET 1 TAB PO (23:30)
[2022-05-30] VITALS: PULSE 76
[2022-05-30 02:00] VITALS: PULSE 79
[2022-05-30 04:00] VITALS: BP 114/60; PULSE 68; PULSE 74; RESP 20; TEMP 36.4; O2SAT 100
[2022-05-30 05:16] LABS: Anion Gap 7 mmol/L (8-16); Blood Urea Nitrogen 18 mg/dL (9-20); Calcium 8.9 mg/dL (8.4-10.2); Carbon Dioxide 28 mmol/L (22-30); Chloride 102 mmol/L (98-107); Estimated CRCL calculation 97 ml/min; Estimated Glomerular Filt Rate > 60; Glucose 95 mg/dL (65-110); Magnesium 2.1 mg/dL (1.6-2.3); Potassium 4.1 mmol/L (3.4-5.0); Sodium 137 mmol/L (137-145)
[2022-05-30 06:00] VITALS: PULSE 68
--- NOTE | 2022-05-30 07:10 | PC.NURSE ---
Received a call to the IMU from the bottle washing machine operator around 0700 that this pt's family member was supposed to hand picker the pt this morning. Electric Transfer Operator informed the family member that this pt was not being discharged. This RN went down to the pt's room to get more information. The pt said that his dog was being put down today, and he didn't want to miss it. This RN informed him of the risks of him leaving against medical advice with his extensive cardiac history and intermittent chest pain. The pt stated that he would follow up with his e m assembler outpatient as soon as possible. The pt was provided with an AMA form to sign. His IVs and tele monitor were removed. Pt was escorted down the kat to the elevator.
--- NOTE | 2022-06-06 10:07 | PM.IMPN ---
Progress Note: A&P Assessment and Plan (1) Chest pain: Code(s): R07.9 - Chest pain, unspecified Status: Acute (2) Coronary artery disease: Code(s): I25.10 - Atherosclerotic heart disease of [place] coronary artery without angina pectoris Status: Acute (3) Ischemic cardiomyopathy: Code(s): I25.5 - Ischemic cardiomyopathy Status: Acute (4) Obstructive sleep apnea on CPAP: Code(s): G47.33 - Obstructive sleep apnea (adult) (pediatric); Z99.89 - Dependence on other enabling machines and devices Status: Acute (5) Type 2 diabetes mellitus: Code(s): E11.9 - Type 2 diabetes mellitus without complications Status: Acute Plan patient left ama on 05/30 did not examine patient Subjective Date/time seen: 06/06/22 10:07 Exam Narrative: did not examine patient Objective Data Meds/Results Radiology Results: ITS Impressions Chest X-Ray 05/29/22 14:21 IMPRESSION: 1. No acute cardiopulmonary abnormality.
== END 2022-05-30 07:10 | disposition home or self-care (01) ==
LOC: ANHED 14:36 → ANHIMU 17:28
PROVIDERS: Physician Assistant; Admitting Provider Internal Medicine; Emergency Provider Emergency Medicine; PCP Emergency Medicine; Visit Provider Internal Medicine
DX: R07.9 Chest pain, unspecified (principal); I25.10 Atherosclerotic heart disease of native coronary artery without angina pectoris; Z95.5 Presence of coronary angioplasty implant and graft; I25.5 Ischemic cardiomyopathy; G47.33 Obstructive sleep apnea (adult) (pediatric); Z99.89 Dependence on other enabling machines and devices; E11.42 Type 2 diabetes mellitus with diabetic polyneuropathy; R11.0 Nausea; F41.9 Anxiety disorder, unspecified; J45.909 Unspecified asthma, uncomplicated; I11.0 Hypertensive heart disease with heart failure; I50.9 Heart failure, unspecified; F32.A Depression, unspecified; I25.2 Old myocardial infarction; R94.31 Abnormal electrocardiogram [ECG] [EKG]; F10.90 Alcohol use, unspecified, uncomplicated; F14.11 Cocaine abuse, in remission; Z87.891 Personal history of nicotine dependence; Z79.52 Long term (current) use of systemic steroids; Z79.82 Long term (current) use of aspirin; Z79.899 Other long term (current) drug therapy; Z82.49 Family history of ischemic heart disease and other diseases of the circulatory system
CPT/HCPCS: 36415; 71045; 80048; 80053; 83690; 83735; 84484; 85025; 85610; 85730; 93005; 94660; 96374; 99285; A9270; G0378; G0379; J2270

== ENCOUNTER 2022-07-26 12:40 | Emergency (ER) | payer OTHER, SELFPAY ==
[2022-07-26 12:42] VITALS: BP 113/59; PULSE 108; RESP 18; TEMP 36.6; O2SAT 97
[2022-07-26] MEDS: BUPivacaine HCL 0.5% PF 30 ML VIAL INFILTRATE (13:52)
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
== END 2022-07-26 15:09 | disposition home or self-care (01) ==
PROVIDERS: Emergency Provider Physician Assistant; PCP Emergency Medicine
DX: K08.89 Other specified disorders of teeth and supporting structures (principal); I25.10 Atherosclerotic heart disease of native coronary artery without angina pectoris; E11.42 Type 2 diabetes mellitus with diabetic polyneuropathy; E78.5 Hyperlipidemia, unspecified; I10 Essential (primary) hypertension; I25.5 Ischemic cardiomyopathy; I25.2 Old myocardial infarction; J45.909 Unspecified asthma, uncomplicated; G47.33 Obstructive sleep apnea (adult) (pediatric); F17.210 Nicotine dependence, cigarettes, uncomplicated; Z95.5 Presence of coronary angioplasty implant and graft; Z79.82 Long term (current) use of aspirin
CPT/HCPCS: 64999; 99283